=== PATIENT | male | born 1950 | race Caucasian/White ===

== ENCOUNTER 2017-03-12 08:33 | Day surgery (SDC) | payer BC ==
--- NOTE | 2017-03-06 16:34 | CONS ---
CC: Dr. 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 Max Richards. At the present time, he is asymptomatic. He has a history of diabetes mellitus type 2 and hypertension. He has a history of hyperlipidemia. He has a history of gout in the past. CURRENT MEDICATIONS: 1. Metformin 1000 mg b.i.d. 2. Actos 15 mg b.i.d. 3. Lisinopril/Hydrochlorothiazide 20/25 one daily. 4. Atenolol 50 mg daily. 5. Terazosin 10 mg b.i.d. 6. Allopurinol 100 mg daily. 7. Victoza 1.2 gm daily. ALLERGIES: No known medical allergies. FAMILY HISTORY: Unremarkable. SOCIAL HISTORY: He is an human resources project coordinator. He is . He does not use tobacco. He limits himself to two drinks per day. REVIEW OF SYSTEMS: No hearing difficulties. No heat or cold intolerance. No chest pain, no shortness of breath. No nausea, no vomiting. He has a history of benign prostatic hypertrophy. No problems with constipation or diarrhea. No arthropathies. No skin rashes. 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 No neuropathy or neurologic deficits. PHYSICAL EXAMINATION: General: He is an obese, white gentleman in no distress. Vital Signs: He weighs 308, he is 6 feet in height. HEENT: He is normocephalic without evidence of trauma. He is anicteric. His extraocular muscles are intact. His pupils are reactive. The throat is clear. There are no carotid bruits. There is no jugular venous distention. His chest is clear. Heart: Revealed a regular rhythm without murmurs. Abdomen: Obese. There is no organomegaly. Bowel sounds are positive. Bones, joints and extremities: There is no cyanosis, clubbing or edema. Peripheral pulses are well maintained. Neurologic: Unremarkable. LABORATORY DATA: A review of his laboratory studies reveals a white count of 7.2, hemoglobin of 14.7, platelet count of 195; sodium 139, potassium 4.5, total CO2 32, chloride 100, creatinine 1.19 and this is basically around his baseline, BUN of 19, glucose of 150, hemoglobin A1c 8.1. IMPRESSION: 1. Cataract. 2. Diabetes mellitus type 2. 3. Hypertension. 4. Hyperlipidemia. 5. Benign prostatic hypertrophy. He is at slightly increased risk for surgery because of his diabetes and hypertension; however, both are adequately managed at the present time. I see no significant cardiovascular risk. I see no significant bleeding problems. I see no significant extra infectious disease risks. As a result, I believe it is reasonable to proceed along with the planned surgery. [id number]/[facility] #: [id number] TOM
[~2017-03-12 08:33] MED LIST: Acetaminophen TAB* 325 MG PO PRN; Buffered Lidocaine 0.9% SYRIN* 5 ML/SYR SYRINGE INTRADERM ONE
[2017-03-12] MEDS ORDERED: Atenolol TAB* 50 MG ONE (09:00)
[2017-03-12] MEDS ORDERED: Midazolam* 1 MG/ML 2 ML VIAL (2 MG) ONE (09:36)
[2017-03-12 10:05] VITALS: BP 127/72
--- NOTE | 2017-03-12 12:05 | OP ---
DATE OF OPERATION/DATE OF DICTATION: 03/12/2017. DATE OF : 1950. SURGEON: Dr. Max Richards. MERCHANDISE DIRECTOR: None. ANESTHESIA: Topical with intravenous sedation. PRE-OP DIAGNOSIS: Cataract, right eye. POST-OP DIAGNOSIS: Cataract, right eye. OPERATIVE PROCEDURE: Phacoemulsification and cataract extraction with posterior chamber intraocular lens implant, right eye. COMPLICATIONS: None. BLOOD LOSS: None. OPERATIVE FINDINGS: The patient was brought to the operating room and received a small amount of int ravenous sedation. A drop of Tetracaine was placed in his right eye. He was prepped and draped in t he usual sterile fashion for ophthalmic surgery and attention was directed to the right eye where a s peculum was placed. A paracentesis was created at the 11 o'clock position and 0.1 cc of 1 percent pr eservative-free Lidocaine was injected into the anterior chamber followed by DisCoVisc. The eye was digitally stabilized while a 2.75 mm keratome was used to create a triplanar clear corneal incision a t the 9 o'clock position. A continuous curvilinear capsulorrhexis was created with a cystotome and U trata forceps. BSS on a cannula was used to hydrodissect the lens from the capsule. Phacoemulsificat ion was performed in a [id number] technique to create four fragments which were removed. Res idual cortical material was removed with irrigation and aspiration. DisCoVisc was used to inflate th e capsular bag and an AUOOTO 21.0 diopter lens was folded and inserted into the capsular bag. DisCoV isc was removed using irrigation and aspiration. BSS on a cannula was used to hydrate the corneal st jeison and seal the wound. At the end of the case the pupil was round and the lens was centered. The eye was of normal pressure and the wound was water tight. The speculum was removed and topical Maxit rol ointment was placed on the surface of the eye. The eye was closed, patched and shielded and the patient was sent to the recovery room in stable condition with post operative instructions and follow -up appointment given. [id number]/[facility] #: [id number]
[2017-03-12] MEDS ORDERED: Tropicamide 1% OPTH.SOL* BTL ONE (15:02)
[2017-03-12] MEDS ORDERED: Cyclopentolate 1% OPTH.SOL* 2 ML BTL ONE (15:02)
[2017-03-12] MEDS ORDERED: Tetracaine 0.5% OPTH.SOL 4 ML* 1 DROP BTL ONE (15:02)
[2017-03-12] MEDS ORDERED: Neomycin/Polymy/Dex OPHTH.OIN* 3.5 GM ONE (15:02)
[2017-03-12] MEDS ORDERED: Buffered Lidocaine 0.9% SYRIN* 5 ML/SYR SYRINGE ONE (15:02)
[2017-03-12] MEDS ORDERED: Phenylephrine 2.5% OPTH.SOL* 2 ML BTL ONE (15:02)
[2017-03-12] MEDS ORDERED: Lidocaine 1% MPF* 2 ML VIAL ONE (15:02)
[2017-03-12] MEDS ORDERED: Ketorolac 0.5% OPHTH (NF) 0.5 % 5 ML BTL ONE (15:02)
== END 2017-03-12 10:16 | disposition home or self-care (01) ==
LOC: OREAST 08:33
PROVIDERS: ATTEND Ophthalmology
DX: E11.36 Type 2 diabetes mellitus with diabetic cataract (principal); H25.11 Age-related nuclear cataract, right eye; I10 Essential (primary) hypertension; M10.9 Gout, unspecified; Z79.84 Long term (current) use of oral hypoglycemic drugs; N40.0 Benign prostatic hyperplasia without lower urinary tract symptoms; E78.5 Hyperlipidemia, unspecified; E66.9 Obesity, unspecified
CPT/HCPCS: A9270-GY; J2250; V2632

== ENCOUNTER 2017-05-25 13:44 | Emergency (ER) | payer BC, MEDICARE ==
[2017-05-25] MEDS ORDERED: NS 0.9% 1000 ML* 2,000 ML IV ONE (15:29)
[2017-05-25 15:30] LABS: Hematocrit 43 % (42-52); Hemoglobin 14.8 g/dl (14.0-18.0); Mean Corpuscular HGB Conc 34 g/dl (31-36); Mean Corpuscular Hemoglobin 31 pg (27-31); Mean Corpuscular Volume 91 fL (80-94); Mean Platelet Volume 10 um3 (7.4-10.4); Platelet Count 177 10^3/ul (150-450); Red Blood Count 4.74 10^6/ul (4.0-5.4); Red Cell Distribution Width 15 % (10.5-15); White Blood Count 18.5 10^3/ul (3.5-10.8)
[2017-05-25 15:43] LABS: INR 0.96 (0.77-1.02)
[2017-05-25 15:46] LABS: EGFR Non-African American 55.7 (>60)
[2017-05-25 16:18] LABS: Monocytes % 5 % (0-13)
[2017-05-25 16:19] LABS: ABS Neutrophils 16.4 10^3/ul (1.5-7.7)
[2017-05-25 16:41] LABS: Urine Appearance Turbid; Urine Blood 3+ (Negative); Urine Color Amber; Urine Ketones Trace (Negative); Urine Protein 2+(100 mg/dL) (Negative); Urine Specific Gravity 1.018 (1.010-1.030); Urine Urobilinogen Negative (Negative)
[2017-05-25] MEDS ORDERED: cefTRIAXone(*) 1 GM in NS 0.9% 50 ML* 50 ML IVPB ONE (16:52)
[2017-05-25] MEDS ORDERED: Amoxicillin/Clavulanate TAB* 875 MG PO ONE ×2 (17:30)
--- NOTE | 2017-05-25 17:30 | ED ---
Erwin Cuevas Jennifer, scribed for Talha Yanes MD on 05/25/17 at 1456 . GI/ HPI - HPI Summary HPI Summary: The patient is a 66 year old male who presents to the ED with prostate problems and UTI symptoms that began this morning. He describes that he had to get up every hour at night to use the restroom and that the symptoms feel similar to a UTI he had 3-4 years ago. The patient additionally complains of fever, exhaustion, and discomfort upon urination. He denies cough, congestion, and chest pain. - History of Current Complaint Chief Complaint: EDUrogenitalProblems Time Seen by Provider: 05/25/17 14:43 Stated Complaint: FEVER/URINARY ISSUES Hx Obtained From: Patient Onset/Duration: Started Hours Ago - Early this morning, Still Present Timing: Constant Severity: Mild Current Severity: None Pain Intensity: 0 Associated Signs and Symptoms: Positive: Other: - Increased frequency of urination, discomfort while urinating, fever, exhaustion. NEGATIVE: cough, congestion, chest pain Aggravating Factor(s): Nothing Alleviating Factor(s): Nothing - Allergy/Home Medications Allergies/Adverse Reactions: Allergies Allergy/AdvReac Type Severity Reaction Status Date / Time No Known Allergies Allergy Verified 03/05/17 14:02 PMH/Surg Hx/FS Hx/Imm Hx Endocrine/Hematology History: Reports: Hx Diabetes - type 2 Cardiovascular History: Reports: Hx Hypertension, Other Cardiovascular Problems/ Disorders - hx of diabetes Denies: Hx Pacemaker/ICD Respiratory History: Reports: Hx Sleep Apnea - no machine History: Denies: Hx Renal Disease Musculoskeletal History: Denies: Hx Rheumatoid Arthritis, Hx Osteoporosis Sensory History: Reports: Hx Cataracts - both, Hx Contacts or Glasses - glasses Denies: Hx Hearing Aid Opthamlomology History: Reports: Hx Cataracts - both, Hx Contacts or Glasses - glasses Psychiatric History: Denies: Hx Panic Disorder - Cancer History Hx Chemotherapy: No - Surgical History Surgery Procedure, Year, and Place: APPENDECTOMY. PLANTAR - WART? Rt FOOT. left cystacele Hx Anesthesia Reactions: No - Immunization History Date of Influenza Vaccine: 01/2017 Immunizations Up to Date: Yes Infectious Disease History: No Infectious Disease History: Denies: Traveled Outside the [place] in Last 30 Days - Family History Known Family History: Negative: Diabetes - Social History Alcohol Use: Weekly Substance Use Type: Reports: None Smoking Status (MU): Former Smoker Amount Used/How Often: smoked for approx 15-20 years 1ppd Review of Systems Positive: Fever, Other - Exhaustion Negative: Chest Pain Negative: Cough, Other - Congestion Positive: burning, urgency All Other Systems Reviewed And Are Negative: Yes Physical Exam - Summary Physical Exam Summary: General: mildly ill-appearing, no pain distress Skin: warm, color reflects adequate perfusion, dry Head: normal Eyes: EOMI, JUAN RAMON ENT: normal Neck: supple, nontender Respiratory: CTA, breath sounds present Cardiovascular: RRR Abdomen: soft, nontender Bowel: present Musculoskeletal: normal, strength/ROM intact Neurological: normal, sensory/motor intact, A&O x3 Psychological: affect/mood appropriate Triage Information Reviewed: Yes Vital Signs On Initial Exam: Initial Vitals Temp Pulse Resp BP Pulse Ox 99.7 F 128 20 122/67 94 05/25/17 13:47 05/25/17 13:47 05/25/17 13:47 05/25/17 13:47 05/25/17 13:47 Vital Signs Reviewed: Yes Diagnostics - Vital Signs Vital Signs Temp Pulse Resp BP Pulse Ox 05/25/17 13:47 99.7 F 128 20 122/67 94 - Laboratory Lab Results: Lab Results 05/25/17 05/25/17 05/25/17 Range/Units 15:20 15:20 15:20 WBC 18.5 H (3.5-10.8) 10^3/ul RBC 4.74 (4.0-5.4) 10^6/ul Hgb 14.8 (14.0-18.0) g/dl Hct 43 (42-52) % MCV 91 (80-94) fL MCH 31 (27-31) pg MCHC 34 (31-36) g/dl RDW 15 (10.5-15) % Plt Count 177 (150-450) 10^3/ul MPV 10 (7.4-10.4) um3 Neut % (Auto) Not Reportable Lymph % (Auto) Not Reportable [place] % (Auto) Not Reportable Eos % (Auto) Not Reportable Baso % (Auto) Not Reportable Absolute Neuts (auto) 16.4 H (1.5-7.7) 10^3/ul Absolute Lymphs (auto) Not Reportable Absolute Monos (auto) Not Reportable Absolute Eos (auto) Not Reportable Absolute Basos (auto) Not Reportable Absolute Nucleated RBC Not Reportable Immature Gran % 13 H (0-9) % Neutrophils % 77 (38-83) % Band Neutrophils % 13 H (0-8) % Lymphocytes % 1 L (25-47) % Reactive Lymphs % 4 (0-6) % Monocytes % 5 (0-13) % Eosinophils % 0 (0-6) % Basophils % 0 (0-2) % Nucleated RBC % Not Reportable Abs Neuts (Manual) 14.2 H (1.5-7.7) 10^3/ul Abs Monocytes (Manual) 0.9 H (0-0.8) 10^3/ul Absolute Eos (Manual) 0 (0-0.6) 10^3/ul Abs Basophils (Manual) 0 (0-0.2) 10^3/ul Normal RBC Morphology Normal (Normal) INR (Anticoag Therapy) (0.77-1.02) Sodium 133 (133-145) mmol/L Potassium 3.7 (3.5-5.0) mmol/L Chloride 98 L (101-111) mmol/L Carbon Dioxide 27 (22-32) mmol/L Anion Gap 8 (2-11) mmol/L BUN 23 (6-24) mg/dL Creatinine 1.29 H (0.67-1.17) mg/dL Est GFR ( Amer) 71.7 (>60) Est GFR (Non-Af Amer) 55.7 (>60) BUN/Creatinine Ratio 17.8 (8-20) Glucose 225 H (70-100) mg/dL Lactic Acid (0.5-2.0) mmol/L Calcium 9.3 (8.6-10.3) mg/dL Total Bilirubin 0.70 (0.2-1.0) mg/dL AST 21 (13-39) U/L ALT 25 (7-52) U/L Alkaline Phosphatase 68 (34-104) U/L C-Reactive Protein 23.44 H (< 5.00) mg/L B-Natriuretic Peptide 109 H ( - 100) pg/mL Total Protein 6.8 (6.4-8.9) g/dL Albumin 3.9 (3.2-5.2) g/dL Globulin 2.9 (2-4) g/dL Albumin/Globulin Ratio 1.3 (1-3) Lipase 14 (11.0-82.0) U/L Urine Color Urine Appearance Urine pH (5-9) Ur Specific [place] (1.010-1.030) Urine Protein (Negative) Urine Ketones (Negative) Urine Blood (Negative) Urine Nitrate (Negative) Urine Bilirubin (Negative) Urine Urobilinogen (Negative) Ur Leukocyte Esterase (Negative) Urine WBC (Auto) (Absent) Urine RBC (Auto) (Absent) Ur Squamous Epith Cells (Absent) Urine Bacteria (Absent) Urine Glucose (Negative) 05/25/17 05/25/17 05/25/17 Range/Units 15:20 15:20 16:17 WBC (3.5-10.8) 10^3/ul RBC (4.0-5.4) 10^6/ul Hgb (14.0-18.0) g/dl Hct (42-52) % MCV (80-94) fL MCH (27-31) pg MCHC (31-36) g/dl RDW (10.5-15) % Plt Count (150-450) 10^3/ul MPV (7.4-10.4) um3 Neut % (Auto) Lymph % (Auto) [place] % (Auto) Eos % (Auto) Baso % (Auto) Absolute Neuts (auto) (1.5-7.7) 10^3/ul Absolute Lymphs (auto) Absolute Monos (auto) Absolute Eos (auto) Absolute Basos (auto) Absolute Nucleated RBC Immature Gran % (0-9) % Neutrophils % (38-83) % Band Neutrophils % (0-8) % Lymphocytes % (25-47) % Reactive Lymphs % (0-6) % Monocytes % (0-13) % Eosinophils % (0-6) % Basophils % (0-2) % Nucleated RBC % Abs Neuts (Manual) (1.5-7.7) 10^3/ul Abs Monocytes (Manual) (0-0.8) 10^3/ul Absolute Eos (Manual) (0-0.6) 10^3/ul Abs Basophils (Manual) (0-0.2) 10^3/ul Normal RBC Morphology (Normal) INR (Anticoag Therapy) 0.96 (0.77-1.02) Sodium (133-145) mmol/L Potassium (3.5-5.0) mmol/L Chloride (101-111) mmol/L Carbon Dioxide (22-32) mmol/L Anion Gap (2-11) mmol/L BUN (6-24) mg/dL Creatinine (0.67-1.17) mg/dL Est GFR ( Amer) (>60) Est GFR (Non-Af Amer) (>60) BUN/Creatinine Ratio (8-20) Glucose (70-100) mg/dL Lactic Acid 1.5 (0.5-2.0) mmol/L Calcium (8.6-10.3) mg/dL Total Bilirubin (0.2-1.0) mg/dL AST (13-39) U/L ALT (7-52) U/L Alkaline Phosphatase (34-104) U/L C-Reactive Protein (< 5.00) mg/L B-Natriuretic Peptide ( - 100) pg/mL Total Protein (6.4-8.9) g/dL Albumin (3.2-5.2) g/dL Globulin (2-4) g/dL Albumin/Globulin Ratio (1-3) Lipase (11.0-82.0) U/L Urine Color Tea Urine Appearance Turbid Urine pH 5.0 (5-9) Ur Specific [place] 1.018 (1.010-1.030) Urine Protein 2+(100 mg/dl) H (Negative) Urine Ketones Trace H (Negative) Urine Blood 3+ H (Negative) Urine Nitrate Negative (Negative) Urine Bilirubin Negative (Negative) Urine Urobilinogen Negative (Negative) Ur Leukocyte Esterase 3+ H (Negative) Urine WBC (Auto) 3+(>20/hpf) H (Absent) Urine RBC (Auto) 3+(>10/hpf) H (Absent) Ur Squamous Epith Cells Present H (Absent) Urine Bacteria 1+ H (Absent) Urine Glucose Negative (Negative) Result Diagrams: 05/25/17 15:20 05/25/17 15:20 Lab Statement: Any lab studies that have been ordered have been reviewed, and results considered in the medical decision making process. - EKG 15:07 Cardiac Rate: Tachycardia EKG Rhythm: Sinus Tachycardia - [address] Segment: Normal Ectopy: None GIGU Course/Dx - Course Course Of Treatment: BP noted and advised to follow up with PCP. Medications reviewed. DISCUSSED ADMISSION WITH PATIENT AND HIS . THE PATIENT DECLINES ADMISSION. AUGMENTIN CHOOSEN BASED ON 03/06 URINE CULTURE. F/U PMD AND UROLOGY ; RETURN IF WORSE. - Diagnoses Provider Diagnoses: UTI (urinary tract infection) Discharge - Discharge Plan Condition: Stable Disposition: HOME Prescriptions: Amoxicillin/Clavulanate TAB* [Augmentin TAB 875*] 875 mg PO BID #20 tab Patient Education Materials: Urinary Tract Infection in Men (ED) Referrals: [facility] [Provider Group] Kings De La Torre MD [Primary Care Provider] - Jose Chino MD [Medical Doctor] - Juanito Betancourt MD [Medical Doctor] - Additional Instructions: FOLLOW UP WITH YOUR PRIMARY CARE DOCTOR AND UROLOGY. RETURN TO THE EMERGENCY DEPARTMENT FOR ANY WORSENING OF YOUR CONDITION; FEVER, YOU FEEL ILL OR QUESTIONS OR CONCERNS. The documentation as recorded by the Erwin greene Jennifer accurately reflects the service I personally performed and the decisions made by me, Talha Yanes MD.
[2017-05-25 18:10] VITALS: BP 131/73
--- NOTE | 2017-05-27 09:52 | PN ---
Progress Note - Progress Note Date of Service: 05/27/17 Note: Patient's urine culture grew Pseudomonas. Discussed the patient will placed on Cipro twice a day 500 mg twice a day for 10 days.
--- NOTE | 2017-05-28 09:05 | PN ---
Progress Note - Progress Note Date of Service: 05/25/17 Note: patient placed on cipro for treatment of UTI. final culture results show bacteria is susceptible to cipro. no further action required.
== END 2017-05-25 18:31 | disposition home or self-care (01) ==
LOC: ED 13:44
DX: N39.0 Urinary tract infection, site not specified (principal); B96.5 Pseudomonas (aeruginosa) (mallei) (pseudomallei) as the cause of diseases classified elsewhere; Z87.891 Personal history of nicotine dependence
CPT/HCPCS: 36415; 80053; 81003; 81015; 83605; 83690; 83880; 85025; 85610; 86140; 87040; 87077; 87086; 87186; 93005; 96361; 96365; 99282; A9270-GY; J0696

== ENCOUNTER 2018-07-21 16:01 | Emergency (ER) | payer BC, MEDICARE ==
[2018-07-21 16:11] VITALS: BP 135/71
--- NOTE | 2018-07-21 16:32 | UC ---
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 He states that his stool kicked out from under him and he landed on his left posterior pelvis. He is able to continue the day and was able to get up and move around without incident. He received a Toradol injection in the office then. He didn't have much pain through the weekend but then in return to the office today with standing and rotation he began to again experience discomfort. He denies any issues with bowel or bladder, no saddle numbness no weakness or numbness in his legs. He minimizes his use of NSAIDs given his metformin, lisinopril and a baseline creatinine of 1.1. He states his high creatinine was 1.4. - History of Current Complaint Chief Complaint: UCBackPain Stated Complaint: FALL INJURY Time Seen by Provider: 07/21/18 16:13 Hx Obtained From: Patient Pain Intensity: 3 - Allergies/Home Medications Allergies/Adverse Reactions: Allergies Allergy/AdvReac Type Severity Reaction Status Date / Time No Known Allergies Allergy Verified 07/21/18 16:11 Home Medications: Home Medications Dutasteride 0.5 mg PO DAILY 07/21/18 [History Confirmed 07/21/18] Rosuvastatin Calcium 20 mg PO DAILY 07/21/18 [History Confirmed 07/21/18] PMH/Surg Hx/FS Hx/Imm Hx Endocrine History: Diabetes Cardiovascular History: Hypertension - Surgical History Surgical History: Yes Surgery Procedure, Year, and Place: APPENDECTOMY. PLANTAR - WART? Rt FOOT. left cystacele - Family History Known Family History: Negative: Diabetes - Social History Occupation: Employed Full-time Alcohol Use: Occasionally Substance Use Type: None Smoking Status (MU): Former Smoker Amount Used/How Often: smoked for approx 15-20 years 1ppd When Did the Patient Quit Smoking/Using Tobacco: [id number] progrssively Review of Systems All Other Systems Reviewed And Are Negative: Yes Constitutional: Positive: Negative Skin: Negative: Rash, Bruising Cardiovascular: Positive: Negative Gastrointestinal: Positive: Negative Genitourinary: Negative: Urgency, Abnormal Bleeding Motor: Positive: Other - Pain with standing and rotation. Negative: Decreased ROM Musculoskeletal: Negative: Arthralgia, Edema, Myalgia Neurological: Negative: Weakness, Numbness Physical Exam Triage Information Reviewed: Yes Appearance: Well-Appearing, No Pain Distress Vital Signs: Initial Vital Signs Temp 97.5 F 07/21/18 16:03 Pulse 85 07/21/18 16:03 Resp 16 07/21/18 16:03 BP 135/71 07/21/18 16:03 Pulse Ox 95 07/21/18 16:03 Respiratory: Positive: Lungs clear Cardiovascular: Positive: RRR Musculoskeletal: Positive: Other: - Minimal pain with standing in the left posterior pelvis without bruising, swelling. No significant spasm or tenderness with palpation. No midline lumbar pain. Neurological Exam: Other - Normal gait. Negative straight leg raises. No crepitance in the hip. Neurological: Positive: Alert Skin Exam: Normal Diagnostics - Radiology Pelvis Radiology Interpretation Completed By: Radiologist Summary of Radiographic Findings: IMPRESSION: #. No radiographic evidence for pelvic fracture. Minor Trauma Course/Dx - Course Course Of Treatment: Nurses notes reviewed. Ice, massage. NSAID as needed. He understands need to limit use of NSAID with glucophage and ACEI. Xrays neg. - Differential Dx/Diagnosis Differential Diagnosis/HQI/PQRI: Contusion(s), Fracture Provider Diagnosis: Pelvic contusion Discharge - Sign-Out/Discharge Documenting (check all that apply): Patient Departure All imaging exams completed and their final reports reviewed: Yes - Discharge Plan Condition: Improved Disposition: HOME Patient Education Materials: Contusion in Adults (ED) Referrals: [facility] [place] [facility] [Outside] Garima Hendrickson MD [Primary Care Provider] - Additional Instructions: ice, NSAID as needed. Limit use. Return with more intense pain, worse or other concerns. - Billing Disposition and Condition Condition: IMPROVED Disposition: Home - Attestation Statements Document Initiated by Scribe: No
== END 2018-07-21 17:06 | disposition home or self-care (01) ==
LOC: UCEAST 16:01
DX: S30.0XXA Contusion of lower back and pelvis, initial encounter (principal); W07.XXXA Fall from chair, initial encounter; Y93.F9 Activity, other caregiving; Y92.531 Health care provider office as the place of occurrence of the external cause; Y99.0 Civilian activity done for income or pay; I10 Essential (primary) hypertension; E11.9 Type 2 diabetes mellitus without complications; Z79.84 Long term (current) use of oral hypoglycemic drugs; Z79.899 Other long term (current) drug therapy; Z87.891 Personal history of nicotine dependence
CPT/HCPCS: 72170; 99212; G0463

== ENCOUNTER 2018-12-29 16:17 | Inpatient (IN) | payer BC, MEDICARE ==
[2018-12-29] MEDS ORDERED: NS 0.9% 1000 ML** 1,000 ML IV.FLUID IV ONE (16:24)
--- NOTE | 2018-12-29 16:33 | ED ---
HPI Diabetic - HPI Summary HPI Summary: This patient is a 68 year old male with a Hx of diabetes presenting to [facility] with a chief complaint of weakness. He states over the past several days he has had diarrhea. He states he had elevated glucose on Saturday, improved with insulin, then had improved Glucose level this AM. He states he normally does not need to take insulin but had some he could take and it helped his symptoms. He states today he is now weak, photophobia, cold sweats, hypotensive, has polyuria polydipsia, and has bilateral neck pain. He describes the neck pain as a tension pain. Pt denies any fever, erythema of eyes, sore throat, CP, SOB, cough, abdominal pain, N/V, dysuria, hematuria, myalgia, edema, rash, or dizziness. The patient refuses a garcia catheter at this point. BP in room is 86/54, HR is 82 BPM. Allopurinol TAB* [Zyloprim 100 MG TAB*] 100 mg PO QAM 01/12/14 [History Confirmed 07/21/18] Atenolol TAB* [Tenormin TAB* 50 MG] 50 mg PO QAM 01/12/14 [History Confirmed 05/10] Lisinopril/HCTZ 20/25(NF) 1 tab PO QAM 01/12/14 [History Confirmed 07/21/18] Pioglitazone TAB* [Actos TAB*] 15 mg PO BID 01/12/14 [History Confirmed 07/21/18 ] Terazosin CAP* [Hytrin CAP 5 MG*] 10 mg PO BID 01/12/14 [History Confirmed 07/21] metFORMIN* [Glucophage 1000 MG TAB *] 1,000 mg PO BID 01/12/14 [History Confirmed 07/21/18] Aspirin EC TAB* [Ecotrin EC Low Dose 81 MG*] 81 mg PO QAM 03/05/17 [History Confirmed 07/21/18] Liraglutide (NF) [Victoza (NF)] 1.2 mg SUBCUT QAM 03/05/17 [History Confirmed ] Dutasteride 0.5 mg PO DAILY 07/21/18 [History Confirmed 07/21/18] Rosuvastatin Calcium 20 mg PO DAILY 07/21/18 [History Confirmed 07/21/18] - History Of Current Complaint Chief Complaint: EDWeakness Time Seen by Provider: 12/29/18 16:24 Hx Obtained From: Patient Onset/Duration: Sudden Onset, Lasting Days Associated Signs & Symptoms: Diarrhea, Polydipsia, Polyuria - Allergies/Home Medications Allergies/Adverse Reactions: Allergies Allergy/AdvReac Type Severity Reaction Status Date / Time No Known Allergies Allergy Verified 07/21/18 16:11 Home Medications: Home Medications Allopurinol TAB* [Zyloprim 300 MG TAB*] 300 mg PO DAILY 12/29/18 [History Confirmed 12/29/18] Dutasteride (NF) [Avodart (NF)] 0.5 mg PO DAILY 12/29/18 [History Confirmed 01/08] Insulin Glargine,Hum.rec.anlog [Basaglar Kwikpen] 20 unit SUBCUT BID 12/29/18 [ History Confirmed 12/29/18] Insulin Regular 500 Unit/ml [Humulin R U-500 (Concentrated)] 0 unit SUBCUT QID MDD 145 units 12/29/18 [History Confirmed 12/29/18] Lisinopril/HCTZ 20/25(NF) [Zestoretic 20/25(NF)] 1 tab PO DAILY 12/29/18 [ History Confirmed 12/29/18] Rosuvastatin (NF) [Crestor] 20 mg PO DAILY 12/29/18 [History Confirmed 12/29/18] PMH/Surg Hx/FS Hx/Imm Hx Endocrine/Hematology History: Reports: Hx Diabetes - type 2 Cardiovascular History: Reports: Hx Hypertension, Other Cardiovascular Problems/ Disorders - hx of diabetes Denies: Hx Pacemaker/ICD Respiratory History: Reports: Hx Sleep Apnea - no machine History: Denies: Hx Renal Disease Musculoskeletal History: Denies: Hx Rheumatoid Arthritis, Hx Osteoporosis Sensory History: Reports: Hx Cataracts - both, Hx Contacts or Glasses - glasses Denies: Hx Hearing Aid Opthamlomology History: Reports: Hx Cataracts - both, Hx Contacts or Glasses - glasses Psychiatric History: Denies: Hx Panic Disorder - Cancer History Hx Chemotherapy: No - Surgical History Surgery Procedure, Year, and Place: APPENDECTOMY. PLANTAR - WART? Rt FOOT. left cystacele Hx Anesthesia Reactions: No - Immunization History Date of Influenza Vaccine: 01/2017 Infectious Disease History: No Infectious Disease History: Reports: Hx Tuberculosis Denies: Traveled Outside the [place] in Last 30 Days - Family History Known Family History: Negative: Diabetes - Social History Alcohol Use: Occasionally Substance Use Type: Reports: None Hx Tobacco Use: Yes Smoking Status (MU): Former Smoker Amount Used/How Often: smoked for approx 15-20 years 1ppd Review of Systems Positive: Chills - Cold sweats. Negative: Fever Positive: Photophobia. Negative: Erythema Negative: Sore Throat Positive: Other - Hypotensive. Negative: Chest Pain Negative: Shortness Of Breath, Cough Positive: Diarrhea. Negative: Abdominal Pain, Vomiting, Nausea Positive: frequency - Polyuria Polydipsia. Negative: dysuria, hematuria Positive: Other - Neck pain. Negative: Myalgia, Edema Negative: Rash Neurological: Other - Neg: Dizziness Positive: Weakness All Other Systems Reviewed And Are Negative: No Physical Exam - Summary Physical Exam Summary: Constitutional: Well-developed, Well-nourished, Alert. (-) Distressed. Obese. Skin: Warm, Dry HENT: Normocephalic; Atraumatic Eyes: Conjunctiva normal Neck: Musculoskeletal ROM normal neck. (-) JVD, (-) Stridor, (-) Tracheal deviation Cardio: Rhythm regular, rate normal, Heart sounds normal; Intact distal pulses; The pedal pulses are 2+ and symmetric. Radial pulses are 2+ and symmetric. (-) Murmur Pulmonary/Chest wall: Effort normal. (-) Respiratory distress, (-) Wheezes, (-) Rales Abd: Soft, (-) tenderness, (-) Distension, (-) Guarding, (-) Rebound Musculoskeletal: (-) Edema Lymph: (-) Cervical adenopathy Neuro: Alert, Oriented x3 Psych: Mood and affect Normal Triage Information Reviewed: Yes Vital Signs On Initial Exam: Initial Vitals Temp Pulse Resp BP Pulse Ox 96.7 F 87 20 74/51 97 12/29/18 16:18 12/29/18 16:18 12/29/18 16:18 12/29/18 16:18 12/29/18 16:18 Vital Signs Reviewed: Yes Diagnostics - Vital Signs Vital Signs Temp Pulse Resp BP Pulse Ox 12/29/18 16:18 96.7 F 87 20 74/51 97 - Laboratory Result Diagrams: 12/29/18 16:35 12/29/18 16:54 Lab Statement: Any lab studies that have been ordered have been reviewed, and results considered in the medical decision making process. - Radiology CXR Radiology Interpretation Completed By: Radiologist Summary of Radiographic Findings: No active cardiopulmonary disease. ED Provider has reviewed this report. - EKG 1637 Cardiac Rate: Bradycardia - 57 BPM EKG Rhythm: Sinus Bradycardia Summary of EKG Findings: No STEMI. Diabetic Course/Dx - Course Course Of Treatment: This patient is a 68 year old male with a Hx of diabetes presenting to [facility] with a chief complaint of weakness. The patients lactic acid level was 3.[address] Thompson, hospitalist, accepted the patient for admission. This plan was discussed with the patient and he was agreeable with this plan. - Diagnoses Provider Diagnoses: Sepsis, Acute renal failure, Uncontrolled diabetes mellitus, Lactic acidosis Discharge ED - Sign-Out/Discharge Documenting (check all that apply): Patient Departure - Admission Patient Received Moderate/Deep Sedation with Procedure: No - Discharge Plan Condition: Stable Disposition: ADMITTED TO [facility] Referrals: Garima Hendrickson MD [Medical Doctor] - - Attestation Statements Document Initiated by Scribe: Yes Documenting Scribe: Marcos Laguerre Provider For Whom Scribe is Documenting (Include Credential): Yazan Arango MD Scribe Attestation: Marcos Cuevas, scribed for Yazan Arango MD on 12/29/18 at 1842. Status of Scribe Document: Ready
[2018-12-29 16:43] LABS: ABS Basophils 0.1 10^3/ul (0-0.2); ABS Eosinophils 0.1 10^3/ul (0-0.6); ABS Lymphocytes 1.5 10^3/ul (1.0-4.8); ABS Monocytes 0.9 10^3/ul (0-0.8); ABS Neutrophils 8.6 10^3/ul (1.5-7.7); Eosinophil % 1.2 %; Hematocrit 43 % (42-52); Hemoglobin 14.9 g/dL (14.0-18.0); Lymphocyte % 13.2 %; Mean Corpuscular HGB Conc 35 g/dL (31-36); Mean Corpuscular Hemoglobin 31 pg (27-31); Mean Corpuscular Volume 90 fL (80-94); Mean Platelet Volume 9.9 fL (7.4-10.4); Nucleated Red Blood Cells % 0.2; Platelet Count 253 10^3/uL (150-450); Red Blood Count 4.79 10^6 /uL (4.18-5.48); Red Cell Distribution Width 15 % (10-15); White Blood Count 11.2 10^3/uL (3.5-10.8)
[2018-12-29] MEDS ORDERED: Vancomycin(*) 1,000 MG in NS 0.9% 250 ML* 250 ML IVPB ONE ×2 (16:45→21:01)
[2018-12-29] MEDS ORDERED: cefTRIAXone(*) 2 GM in NS 0.9% 100 ML* 100 ML IVPB ONE (16:45)
[2018-12-29] MEDS ORDERED: Acyclovir IV(*) 500 MG/10 ML 100 ML VIAL (500 MG) IVPB ONE (16:45)
[2018-12-29 16:55] LABS: Activated Partial Thrombo Time 33.3 seconds (26.0-38.0); INR 0.92 (0.82-1.09)
[2018-12-29 17:02] LABS: Troponin I 0.01 ng/mL (<0.04)
[2018-12-29 17:07] LABS: ALT 36 U/L (7-52); Albumin 4.2 g/dL (3.2-5.2); Albumin/Globulin Ratio 1.5 (1-3); Alkaline Phosphatase 96 U/L (34-104); BUN/Creatinine Ratio 14.1 (8-20); Blood Urea Nitrogen 34 mg/dL (6-24); CO2 Carbon Dioxide 29 mmol/L (22-32); Calcium 10.5 mg/dL (8.6-10.3); Chloride 94 mmol/L (101-111); EGFR African American 32.6 (>60); EGFR Non-African American 26.9 (>60); Globulin 2.8 g/dL (2-4); Glucose 131 mg/dL (70-100); Sodium 135 mmol/L (135-145)
[2018-12-29 17:58] LABS: Anion Gap 12 mmol/L (2-11)
[2018-12-29 17:59] LABS: Potassium Redraw 3.9 mmol/L (3.5-5.0)
[2018-12-29] MEDS ORDERED: Acyclovir IV(*) 780 MG in NS 0.9% 250 ML* 250 ML IVPB ONE (18:00)
[2018-12-29] MEDS ORDERED: Lidocaine 1% MDV 20 ML INJ ONE (19:21)
[2018-12-29] MEDS ORDERED: Lidocaine 1% INJ* 10 MG/ML 30 ML SDV INJ ONE (20:00)
[2018-12-29 20:08] LABS: Urine Appearance Cloudy; Urine Bacteria 1+ (Absent); Urine Bilirubin Negative (Negative); Urine Blood 1+ (Negative); Urine Color Yellow; Urine Glucose 3+(>=500 mg/dL) (Negative); Urine Ketones Negative (Negative); Urine Nitrite Negative (Negative); Urine Protein 1+(30 mg/dL) (Negative); Urine Red Blood Cell 2+(6-10/hpf) (Absent); Urine Squamous Epithelial Cell Present (Absent); Urine Transitional Epithelial Present (Absent); Urine Urobilinogen Negative (Negative); Urine White Blood Cell 3+(>20/hpf) (Absent)
[2018-12-29 20:29] LABS: Body Fluid Source Cerebral Spinal
[2018-12-29 20:43] LABS: CSF Glucose 110 mg/dL (40-70)
--- NOTE | 2018-12-29 21:07 | PN ---
Sepsis Event Evaluation Date of Evaluation: 12/29/18 Time of Evaluation: 21:07 Current Stage of Sepsis: Severe Sepsis Vital Signs - Last 12 Hours: Vital Signs - 12 hr Temp Pulse Resp BP Pulse Ox 12/29/18 21:00 68 14 98 12/29/18 20:02 85 15 122/77 95 12/29/18 20:00 81 15 98 12/29/18 19:45 86 20 139/79 98 12/29/18 19:02 82 16 114/70 99 12/29/18 19:00 80 15 98 12/29/18 18:32 80 13 103/61 97 12/29/18 18:04 81 97 12/29/18 17:44 93 12/29/18 17:00 82 9 96 12/29/18 16:47 82 20 90/66 95 12/29/18 16:33 81 97 12/29/18 16:32 85 86/54 97 12/29/18 16:18 96.7 F 87 20 74/51 97 Lactic Acid: 12/29/18 12/29/18 16:35 20:38 Lactic Acid 3.8 H* 1.8 - Cardiopulmonary Exam Capillary Refill: Immediate Respiratory: Symmetrical Chest Expansion and Respiratory Effort, Clear to Auscultation Cardiovascular: NL Sounds; No Murmurs; No JVD, RRR - Peripheral Pulse Exam Radial Pulses: Bilateral Normal - Skin Exam Skin Exam: Normal Turgor - Wolf Coma Scale Best Eye Response: 4 - Spontaneous Best Motor Response: 6 - Obeys Commands Best Verbal Response: 5 - Oriented Coma Scale Total: 15 Assess/Plan/Problems-Billing Assessment: 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 Will continue current management. BP and LA have responded to IVF. Continue to monitor in ICU.
[2018-12-29 21:09] LABS: Body Fluid Mono 50 %
[2018-12-29] MEDS ORDERED: Dextrose 50% VIAL 50 ml IV PUSH PRN (22:09)
[2018-12-29] MEDS: Lactated Ringers 1000 ML Bag* 1,000 ML IV SCH (22:25)
[2018-12-29] MEDS: Insulin LISPRO* 1 UNITS UNIT SUBCUT SCH (22:59)
[2018-12-29] MEDS: Heparin VIAL(*) 5000 UNITS/ML VIAL (FIVE THOUSAND) SUBCUT SCH (22:59)
[2018-12-29] MEDS: metroNIDAZOLE IV 500 MG/100ML* 500 MG/100 ML BAG IVPB SCH (23:01)
--- NOTE | 2018-12-30 00:45 | HP ---
CC: Dr. De La Torre; Dr. Betancourt * HISTORY AND PHYSICAL: DATE OF ADMISSION: 12/29/18 TIME OF EVALUATION: 8:30 p.m. PRIMARY CARE PROVIDER: Dr. De La Torre. UROLOGIST: Dr. Betancourt. CHIEF COMPLAINT: Diarrhea. 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 He states that a couple of weeks ago, he started to have diarrhea that he described as soft stool and this has progressed to the point that since yesterday he has had multiple episodes of watery diarrhea. He denies abdominal pain, nausea, and vomiting, but he states that he was not able to keep up with the fluid intake for that amount of diarrhea. He also noted that over the weekend, his glucose was elevated. He is usually on metformin and Victoza with reported reasonable glycemic control, but over the weekend, he saw numbers above 400. So, he added insulin Basaglar to 25 units twice a day with a Humalog coverage of 15 units 3 times a day. He also complains of increased urinary frequency. He states that he has had urinary frequency up to 4 or 5 times at night, but this was well controlled with dutasteride and tamsulosin, but over the weekend, he started to urinate a lot and he thought that was because his diabetes was uncontrolled, but even as his glucose trended down, he continued to urinate a lot. He denies abdominal pain, dysuria, fever, chills, or other complaints. On arrival to the emergency room, his initial blood pressure was 74/51 and the hospitalist service was contacted to evaluate the patient for admission. Initially, in the emergency room, he also complained of generalized weakness, photophobia, cold sweats, and also neck pain. The patient states that he has been under very intense stress as he is having increased demands of productivity in his office and he is also preparing to take the boards in the next month. The patient denies sick contacts. He denies eating any different foods. His did not have any symptoms. He denies any recent trips. PAST MEDICAL HISTORY: 1. Morbid obesity with a BMI of 41.6. 2. Type 2 diabetes. 3. Hypertension. 4. Hyperlipidemia. 5. Gout. 6. Obstructive sleep apnea, not on any treatment. PAST SURGICAL HISTORY: 1. Status post appendectomy. 2. Status post left cystocele repair. 3. Status post removal of skin cancers. FAMILY HISTORY: His father had multiple cancers including a non-Hodgkin's lymphoma, melanoma, and colon cancer. Mother had tuberculosis. Siblings had history of diabetes. SOCIAL HISTORY: The patient was a smoker from age 25 until age 40 a pack per day. He states that he drinks 4 times a week, usually 2 to 4 ounces of whiskey or wine. He denies any drug use. He is a physician, a primary care provider in the community. Surrogate decision maker is his , Kait Abernathy, phone number is [phone]. REVIEW OF SYSTEMS: A 14-point review of systems was performed, and all the pertinent negatives and positive findings are in the HPI. PHYSICAL EXAMINATION GENERAL: The patient is a pleasant, morbidly obese, gentleman lying in the ED stretcher in no acute distress. VITAL SIGNS: Temperature 98.0, heart rate is 87, respiratory rate is 20, oxygen saturation is 98% on room air, blood pressure is 122/77. HEENT: Pupils are equal. Dry mucous membranes. CHEST: Breath sounds are bilaterally diminished in the bases, but no added sounds. CVS: Normal S1, S2. Regular rate and rhythm. ABDOMEN: Morbidly obese, nontender, nondistended. Bowel sounds are present and increased. EXTREMITIES: No edema. Good capillary refill. Good pulses. NEURO: He is alert, oriented x3. Able to move all 4 extremities. DIAGNOSTIC STUDIES/LAB DATA: The patient had a CBC that showed WBC 11.2, hemoglobin 14.9, hematocrit 43, platelets of 253 with 77% neutrophils. INR is 0.92. Chemistry showed a sodium of 135, potassium of 3.9, chloride of 94, bicarb of 29, anion gap of 12, BUN of 34, creatinine of 2.41, glucose of 131, lactic acid is 3.8, calcium is 10.5. LFTs are normal. Troponin was 0.01. Urinalysis showed 1+ protein, 1+ blood, 2+ LE, 3+ wbc's, 2+ rbc's with squamous epithelial cells and transition epithelial cells present, 1+ bacteria, and 3+ glucose. CSF was colorless with clear appearance, 2 wbc's, 1 rbc with 50% lymphocytes, 50 % monocytes with a glucose of 110 and total protein of 41. Chest x-ray showed no evidence for active cardiopulmonary disease. CT of the brain showed stable age-related diffuse cerebral volume loss and chronic microvascular ischemic disease. No acute intracranial pathology. No signs of mass effect or herniation. CT of the cervical spine shows multilevel degenerative disk disease of the uncinate process and facet DJD, but no acute CT pathology. EKG done on 12/29/18 at 16:43 shows sinus rhythm at 76 beats per minute with no acute ischemic changes. No significant changes when compared to his prior EKG from May 2017. 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 1. Severe sepsis. The patient was not tachycardic initially because he is on the beta coreen as outpatient, but he was hypotensive with an initial blood pressure of 74/51 and had an initial lactic acid of 3.8 with acute kidney injury. I believe the patient is immunosuppressed in the setting of his diabetes mellitus and his presentation is compatible with severe sepsis and the source is likely accumulation of urinary tract infection and gastroenteritis. The patient received his fluid bolus in the emergency room and his blood pressure has improved. He will be admitted to the intensive care unit where we will continue to monitor. There was concern for possible meningitis as the patient is complaining of malaise, headache, and photophobia, but his cerebrospinal fluid shows normal protein with only 2 wbc's. So, I will discontinue the acyclovir and vancomycin at this point. 2. Gastroenteritis. Stool workup is requested as well as Clostridium difficile. 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 So , even if he is not aware, he might have had exposure to other sick individuals. He will be started on ceftriaxone and Flagyl empirically. I believe he probably developed the gastroenteritis first and later on progressed with a urinary tract infection. 3. Urinary tract infection. The patient describing his urinary frequency overnight likely associated with his benign prostatic hyperplasia, but this has become worse over the weekend probably in the setting of uncontrolled diabetes and urinary tract infection. We will continue ceftriaxone and follow his urine culture. Renal, bladder ultrasound will be requested looking for hydronephrosis or nephrolithiasis. If good images are not obtained due to body habitus, I believe a CT of the abdomen would be helpful both for the urinary tract infection as well as the gastroenteritis. 4. Type 2 diabetes, uncontrolled. The patient states that in the past he had reasonable control with metformin and Victoza, but he is having issues now that the Victoza is not going to be covered by his insurance. Over the weekend, he started on a regimen of Basaglar and Humalog and his initial glucose in the emergency room was 131. We are going to monitor his fingersticks a.c. and h.s. He is going to have lower dose of Lantus of 20 units daily for now with the lispro sliding scale. His metformin will be held in the setting of lactic acidosis and we are going to check the hemoglobin A1c. 5. Acute kidney injury. The patient's creatinine is elevated at 2.41 from a baseline of 1.1. I believe most of it is prerenal in the setting of diarrhea, polyuria, and not be able to keep up with his loses. On top of that, the patient is also on lisinopril and hydrochlorothiazide as an outpatient. The patient will continue to receive aggressive fluid resuscitation and we will monitor his renal functioning and urine output. Of note, the patient declined Brooke catheter placement in the emergency room, so we will monitor his intake and output in the ICU. 6. Benign prostatic hyperplasia. We will continue tamsulosin and dutasteride as tolerated. 7. DVT prophylaxis. The patient has a score of 4 on the DVT Prophylaxis Risk Assessment Guide. He will be started on subcutaneous heparin. 8. Code status is discussed with the patient and his . The patient wishes to be a full code. The patient will benefit having a primary care provider appointment done and further counseling regarding his stress levels and need for weight loss and compliance. TIME SPENT: Approximately 60 minutes was spent with patient and interview , medical records review, physical examination to complete the admission; more than half this time was spent [id number] with the patient and coordination of care. [id number]/[facility] #: [id number] TOM
[2018-12-30] MEDS: cefTRIAXone(*) 2 GM in NS 0.9% 100 ML* 100 ML IVPB SCH ×2 (04:40→16:36)
[2018-12-30] MEDS: Lactated Ringers 1000 ML Bag* 1,000 ML IV SCH (04:43)
[2018-12-30 04:44] LABS: ABS Basophils 0.1 10^3/ul (0-0.2); ABS Eosinophils 0.2 10^3/ul (0-0.6); ABS Lymphocytes 1.5 10^3/ul (1.0-4.8); ABS Monocytes 0.7 10^3/ul (0-0.8); ABS Neutrophils 4.9 10^3/ul (1.5-7.7); Eosinophil % 2.5 %; Hematocrit 35 % (42-52); Hemoglobin 12.4 g/dL (14.0-18.0); Lymphocyte % 20.7 %; Mean Corpuscular HGB Conc 35 g/dL (31-36); Mean Corpuscular Hemoglobin 31 pg (27-31); Mean Corpuscular Volume 89 fL (80-94); Mean Platelet Volume 9.9 fL (7.4-10.4); Nucleated Red Blood Cells % 0.1; Platelet Count 172 10^3/uL (150-450); Red Blood Count 3.96 10^6 /uL (4.18-5.48); Red Cell Distribution Width 14 % (10-15); White Blood Count 7.5 10^3/uL (3.5-10.8)
[2018-12-30 05:12] LABS: Albumin 3.1 g/dL (3.2-5.2); Albumin/Globulin Ratio 1.6 (1-3); BUN/Creatinine Ratio 14.8 (8-20); Calcium 8.2 mg/dL (8.6-10.3); EGFR African American 33.2 (>60); EGFR Non-African American 27.5 (>60); Globulin 1.9 g/dL (2-4); Potassium 3.4 mmol/L (3.5-5.0); Total Bilirubin 0.3 mg/dL (0.2-1.0)
[2018-12-30] MEDS: Heparin VIAL(*) 5000 UNITS/ML VIAL (FIVE THOUSAND) SUBCUT SCH ×3 (06:07→21:20)
[2018-12-30] MEDS: metroNIDAZOLE IV 500 MG/100ML* 500 MG/100 ML BAG IVPB SCH (06:07)
[2018-12-30] MEDS ORDERED: Potassium Chlor TAB* 20 MEQ TAB.ER PO ONE (07:50)
[2018-12-30] MEDS: Atorvastatin* 40 MG TAB PO SCH (08:32)
[2018-12-30] MEDS: Insulin GLARGINE(*) 1 UNITS UNIT SUBCUT SCH (08:32)
[2018-12-30] MEDS: Finasteride TAB* 5 MG PO SCH (08:32)
[2018-12-30] MEDS: Insulin LISPRO* 1 UNITS UNIT SUBCUT SCH ×8 (08:43→21:17)
[2018-12-30] MEDS ORDERED: Lactated Ringers 1000 ML Bag* 1,000 ML IV SCH (09:17)
--- NOTE | 2018-12-30 12:05 | CONSULT ---
Consult Consult: Consult requested for GERI Baseline sCr 1.1 from June Peak sCr 2.4 yesterday 2.37 today Admitted with uncontrolled hyperglycemia, polyuria, diarrhea for a few days - worse yesterday. In ED, systolic blood pressure dropped to mid 60s s/p resuscitation with IV fluids 4-5 L. Today BP is better. 130s off BP Meds on IVF Of note, he was on metformin, HCTZ and lisinopril at home. All on hold. Feels better no edema no chest pain On IV ABx s/p LP in ED -ve Volume status: No edema. Off HCTZ. DeniedNSAIDs. Denied recent IVC. Past Medical History: CKD as above sCr 1.1-1.3. eGFR 60 HTN DM Type II on Metformin & Victoza Dyslipidemia Obesit Allergies, Social History,Family History &Surgical History:Reviewed 12-Point Review of Systemobtained: Negative exceptpertinent positives: Constitutional no fever no weight loss Eyes No blurry vision CV no shortness of breath no chest pain no syncope no edema Resp No shortness of breath no cough no wheezing G.I. no diarrhea no nausea no vomiting no pain no blood per rectum no burning no obstruction symptoms Skin no rash Neurology No seizures or neurologic deficit Endocrine no diabetes Hem/Lymp no bleeding no lymph nodes Immun/Allergy no allergic actions Musculoskeletal no Arthritis no swelling no pain Psych no anxiety no depression no hallucination Inpatient Meds: Atorvastatin Dextrose Finasteride Heparin Ceftriaxone Lactated Ringer's 75/Hr Insulin Glargine Insulin Human Lispro Tamsulosin Home Medications Medication Instructions Recorded Confirmed Type Atenolol TAB* [Tenormin TAB* 50 MG] 50 mg PO DAILY 01/12/14 12/29/18 History metFORMIN* [Glucophage 1000 MG TAB 1,000 mg PO BID 01/12/14 12/29/18 History Allopurinol TAB* [Zyloprim 300 MG 300 mg PO DAILY 12/29/18 12/29/18 History Dutasteride (NF) [Avodart (NF)] 0.5 mg PO DAILY 12/29/18 12/29/18 History Insulin Glargine,Hum.rec.anlog 20 unit SUBCUT BID 12/29/18 12/29/18 History [Buddyaglpradip Quiroz] Insulin Regular 500 Unit/ml 0 unit SUBCUT QID MDD 145 units 12/29/18 12/29/18 History [Humulin R U-500 (Concentrated)] Liraglutide (NF) [Victoza (NF)] 1.8 mg SUBCUT DAILY 12/29/18 12/29/18 History Lisinopril/HCTZ (NF) 1 tab PO DAILY 12/29/18 12/29/18 History [Zestoretic (NF)] Rosuvastatin (NF) [Crestor] 20 mg PO DAILY 12/29/18 12/29/18 History Tamsulosin CAP* [Flomax CAP*] 0.4 mg PO BEDTIME 12/29/18 12/29/18 History Vital Signs Temp 97.5 F 12/30/18 10:34 Pulse 74 12/30/18 10:34 Resp 16 12/30/18 10:34 BP 134/70 12/30/18 10:34 Pulse Ox 99 12/30/18 10:34 Intake & Output 12/29/18 12/30/18 12/30/18 18:59 06:59 18:59 Intake Total 100 5658 700 Output Total 625 225 Balance 100 5033 475 Weight 139.253 kg 139.5 kg Intake: IV Fluids 100 5387 595 LR 1137 539 normal saline 4000 56 IVPB 271 105 antibiotics 271 105 Output: Urine 625 225 10 Pointmulti systemexam: Negative except pertinent positive Vital Signs: Constitutional Alert Oriented x 3 Abdomen SoftAbdomen No Ascites Heart: NSR,No LE Edema, No murmur Lungs: Clear to auscultation, No Crackles Extremities: No edema, rash Laboratory Reviewed Lactic Acid 3.8--->0.8 WBC 7.5 10^3/uL (3.5-10.8) 12/30/18 04:30 RBC 3.96 10^6 /uL (4.18-5.48) L 12/30/18 04:30 Hgb 12.4 g/dL (14.0-18.0) L 12/30/18 04:30 Hct 35 % (42-52) L 12/30/18 04:30 MCV 89 fL (80-94) 12/30/18 04:30 MCH 31 pg (27-31) 12/30/18 04:30 MCHC 35 g/dL (31-36) 12/30/18 04:30 RDW 14 % (10-15) 12/30/18 04:30 Plt Count 172 10^3/uL (150-450) Sodium 132 mmol/L (135-145) L 12/30/18 04:30 Potassium 3.4 mmol/L (3.5-5.0) L 12/30/18 04:30 Chloride 102 mmol/L (101-111) 12/30/18 04:30 Carbon Dioxide 24 mmol/L (22-32) 12/30/18 04:30 Anion Gap 6 mmol/L (2-11) 12/30/18 04:30 BUN 35 mg/dL (6-24) H 12/30/18 04:30 Creatinine 2.37 mg/dL (0.67-1.17) H 12/30/18 04:30 Est GFR ( Amer) 33.2 (>60) 12/30/18 04:30 Est GFR (Non-Af Amer) 27.5 (>60) 12/30/18 04:30 BUN/Creatinine Ratio 14.8 (8-20) 12/30/18 04:30 Glucose 217 mg/dL (70-100) H 12/30/18 04:30 POC Glucose (mg/dL) 246 mg/dL (70-100) H 12/30/18 11:26 Lactic Acid 0.8 mmol/L (0.5-2.0) 12/30/18 04:30 Calcium 8.2 mg/dL (8.6-10.3) L 12/30/18 04:30 Total Bilirubin 0.30 mg/dL (0.2-1.0) 12/30/18 04:30 AST 21 U/L (13-39) 12/30/18 04:30 ALT 22 U/L (7-52) 12/30/18 04:30 Alkaline Phosphatase 95 U/L (34-104) 12/30/18 04:30 Troponin I 0.01 ng/mL (<0.04) 12/29/18 16:35 C-React Prot High Sens 3.52 mg/L (<2.00) H 12/29/18 17:01 Total Protein 5.0 g/dL (6.4-8.9) L 12/30/18 04:30 Albumin 3.1 g/dL (3.2-5.2) L 12/30/18 04:30 Globulin 1.9 g/dL (2-4) L 12/30/18 04:30 Albumin/Globulin Ratio 1.6 (1-3) 12/30/18 04:30 Urine Color Yellow 12/29/18 19:45 Urine Appearance Cloudy 12/29/18 19:45 Urine pH 5.0 (5-9) 12/29/18 19:45 Ur Specific [place] 1.010 (1.010-1.030) 12/29/18 19:45 Urine Protein 1+(30 mg/dl) (Negative) A 12/29/18 19:45 Urine Ketones Negative (Negative) 12/29/18 19:45 Urine Blood 1+ (Negative) A 12/29/18 19:45 Urine Nitrate Negative (Negative) 12/29/18 19:45 Urine Bilirubin Negative (Negative) 12/29/18 19:45 Urine Urobilinogen Negative (Negative) 12/29/18 19:45 Ur Leukocyte Esterase 2+ (Negative) A 12/29/18 19:45 Urine WBC (Auto) 3+(>20/hpf) (Absent) A 12/29/18 19:45 Urine RBC (Auto) 2+(6-10/hpf) (Absent) A 12/29/18 19:45 Ur Squamous Epith Cells Present (Absent) A 12/29/18 19:45 Ur Transition Epith Cell Present (Absent) A 12/29/18 19:45 Urine Bacteria 1+ (Absent) A 12/29/18 19:45 Urine Glucose 3+(>=500 mg/dl) (Negative) A 12/29/18 19:45 Fluid Source Cerebral spinal 12/29/18 20:20 Fluid Volume 1.5 mL 12/29/18 20:20 Fluid Color Colorless 12/29/18 20:20 Fluid Appearance Clear 12/29/18 20:20 Fluid WBC 2 /mcL 12/29/18 20:20 Fluid RBC 1 /mcL 12/29/18 20:20 Fluid Tot Cell Count 4 12/29/18 20:20 Fluid Neutrophils Not Reportable 12/29/18 20:20 Fluid Lymphocytes 50 % 12/29/18 20:20 Fluid Monocytes 50 % 12/29/18 20:20 Fluid Comment 12/29/18 20:20 CSF Cell Count Tube # 4 12/29/18 20:20 CSF Glucose 110 mg/dL (40-70) H 12/29/18 20:20 CSF Total Protein 41 mg/dL (15-45) 12/29/18 20:20 Assessment and Plan: *GERI on CKD likely 2/2 Pre-Renal from volume depletion: Hyperglycemia, polyuria , diarrhea while on ACEI/HCTZ: Agree with IVF & holding off BP meds. If sCr doesn't improves significantly by tomorrow, this could be ATN 2/2 sepsis or low blood pressure. Of note, no postvoid residual r/o obstructive uropathy Upon discharge he's not a good candidate for HCTZ as he's at risk for recurrent AKIs & OR and progressive CKD. *BP Better. do not resume ACEI for another 24-48 hours & advise stopping HCTZ upon discharge *Volume status: No edema, may cut down or stop IVF. *Electrolytes: Ok * Ok
--- NOTE | 2018-12-30 12:12 | PN ---
Subjective Date of Service: 12/30/18 Interval History: Pt feels well and inquires about discharge. Diarrhea resolved-no BM x 24H, denies abd pain, no N/V Neck pain resolved Objective Active Medications: Atorvastatin Calcium (Lipitor*) 40 mg PO DAILY [facility] Last Admin: 12/30/18 08:32 Dose: 40 mg Dextrose (Dextrose 50% Vial 50 Ml*) 25 ml IV PUSH .FOR FS < 60 - SS PRN PRN Reason: FS < 60 Finasteride (Proscar Tab*) 5 mg PO DAILY [facility]; Protocol Last Admin: 12/30/18 08:32 Dose: Not Given Heparin Sodium (Porcine) (Heparin Vial(*)) 5,000 units SUBCUT Q8HR [facility] Last Admin: 12/30/18 06:07 Dose: 5,000 units Ceftriaxone Sodium 2 gm/ (Sodium Chloride) 100 mls @ 200 mls/hr IVPB Q12H [facility] Last Admin: 12/30/18 04:40 Dose: 200 mls/hr Lactated Ringer's (Lactated Ringers 1000 Ml Bag*) 1,000 mls @ 75 mls/hr IV PER RATE [facility] Insulin Glargine (Lantus(*)) 20 units SUBCUT Q24H [facility] Last Admin: 12/30/18 08:32 Dose: 20 units Insulin Human Lispro (Humalog*) 0 units SUBCUT ACHS [facility]; Protocol Last Admin: 12/30/18 09:22 Dose: 6 units Insulin Human Lispro (Humalog*) 0 units SUBCUT AC [facility]; Protocol Last Admin: 12/30/18 09:28 Dose: 2 units Tamsulosin HCl (Flomax Cap*) 0.4 mg PO BEDTIME [facility] Vital Signs - 8 hr 12/30/18 12/30/18 12/30/18 04:30 05:00 05:30 Temperature Pulse Rate 78 68 75 Respiratory 12 10 12 Rate Blood Pressure 139/88 135/80 142/68 (mmHg) O2 Sat by Pulse 97 98 95 Oximetry 12/30/18 12/30/18 12/30/18 06:00 06:30 07:00 Temperature Pulse Rate 73 84 72 Respiratory 10 18 12 Rate Blood Pressure 117/69 132/74 134/68 (mmHg) O2 Sat by Pulse 97 98 97 Oximetry 12/30/18 12/30/18 12/30/18 07:02 07:30 08:00 Temperature 98.3 F Pulse Rate 67 86 84 Respiratory 14 12 19 Rate Blood Pressure 121/69 119/58 (mmHg) O2 Sat by Pulse 95 97 97 Oximetry 12/30/18 12/30/18 12/30/18 08:01 08:30 09:00 Temperature Pulse Rate 83 75 82 Respiratory 19 19 20 Rate Blood Pressure 142/63 (mmHg) O2 Sat by Pulse 96 98 96 Oximetry 12/30/18 12/30/18 12/30/18 09:01 09:30 10:00 Temperature Pulse Rate 80 82 82 Respiratory 23 18 21 Rate Blood Pressure 123/68 143/85 144/71 (mmHg) O2 Sat by Pulse 96 98 97 Oximetry 12/30/18 10:34 Temperature 97.5 F Pulse Rate 74 Respiratory 16 Rate Blood Pressure 134/70 (mmHg) O2 Sat by Pulse 99 Oximetry Oxygen Devices in Use Now: None Appearance: 68 yo m in nAD, aAOx3 Eyes: No Scleral Icterus, PERRLA Ears/Nose/Mouth/Throat: NL Teeth, Lips, Gums, Mucous Membranes Moist Neck: NL Appearance and Movements; NL JVP, Trachea Midline Respiratory: Symmetrical Chest Expansion and Respiratory Effort, Clear to Auscultation Cardiovascular: NL Sounds; No Murmurs; No JVD, RRR Abdominal: NL Sounds; No Tenderness; No Distention Lymphatic: No Cervical Adenopathy Extremities: No Clubbing, Cyanosis, - - trace pedal edema b/l Skin: No Rash or Ulcers, No Nodules or Sclerosis Neurological: Alert and Oriented x 3, NL Muscle Strength and Tone Result Diagrams: 12/30/18 04:30 12/30/18 04:30 Microbiology and Other Data: Microbiology 12/29/18 20:20 CSF Gram Stain (Tube 3) - Final Cerebral Spinal Fluid 12/29/18 22:15 Nasal Screen MRSA (PCR) - Final Nasal Mrsa Not Detected Assess/Plan/Problems-Billing Assessment: 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 - Patient Problems (1) Severe sepsis Comment: pt's hypoetnsion resolved after IVF No more diarrhea, suspect the cause of sepsis is gastroneteritis(poss viral) with possible UTI Cont Ceftriaxone, d/c Flagyl cont with stool cx, d/c C. diff testing since no BM x24H Transfer out of ICU (2) DM2 (diabetes mellitus, type 2) Comment: due to elevated creatinine metformin will not be restarted cont ISS and Lantus (3) GERI (acute kidney injury) Comment: Creat just with mild improvement after over 4L of IVF suspect ATN. FeNa pending Asked nephrology to see pt cont Ceftriaxone for poss UTI(blood cx and U cx pending) No siginifcant post void residual noted on renal and bladder US. will cont gentle IVF (4) DVT prophylaxis Comment: HSQ Status and Disposition: Inpatient, anticipated d/c home tomorrow
[2018-12-30 16:08] LABS: Urine Creatinine Concentration 120.58 mg/dL
[2018-12-30] MEDS ORDERED: Tamsulosin CAP* 0.4 MG PO SCH (21:00)
[2018-12-31] MEDS: cefTRIAXone(*) 2 GM in NS 0.9% 100 ML* 100 ML IVPB SCH (04:35)
[2018-12-31] MEDS: Heparin VIAL(*) 5000 UNITS/ML VIAL (FIVE THOUSAND) SUBCUT SCH (04:55)
[2018-12-31 05:13] LABS: Hematocrit 38 % (42-52); Hemoglobin 12.9 g/dL (14.0-18.0); Mean Corpuscular HGB Conc 34 g/dL (31-36); Mean Corpuscular Hemoglobin 31 pg (27-31); Mean Corpuscular Volume 90 fL (80-94); Mean Platelet Volume 10.1 fL (7.4-10.4); Platelet Count 187 10^3/uL (150-450); Red Blood Count 4.18 10^6 /uL (4.18-5.48); Red Cell Distribution Width 15 % (10-15); White Blood Count 6.9 10^3/uL (3.5-10.8)
[2018-12-31 05:35] LABS: BUN/Creatinine Ratio 15.8 (8-20); Calcium 8.8 mg/dL (8.6-10.3); EGFR African American 55.5 (>60); EGFR Non-African American 45.8 (>60); Magnesium 1.5 mg/dL (1.9-2.7); Potassium 3.6 mmol/L (3.5-5.0)
[2018-12-31 07:40] VITALS: BP 130/76
[2018-12-31] MEDS ORDERED: Magnesium Sulfate 2 GM IV* 2 GM/50 ML BAG IVPB ONE (08:50)
[2018-12-31] MEDS ORDERED: Magnesium Oxide TAB* 400 MG PO SCH (09:00)
--- NOTE | 2018-12-31 09:03 | PN ---
Progress Note - Progress Note Date of Service: 12/31/18 Note: Renal follow-up Baseline sCr 1.1 GERI sCr 2.4-2.37 GERI 2/2 uncontrolled hyperglycemia, diarrhea, Hypotension improved with IV fluids. sCr today 1.52. Feels well no complaints wants to go home. c/c of lack sleep from his hospital stay. No shortness of breath no edema Metformin, HCTZ and Lisinopril still on hold. Inpatient Meds: Atorvastatin Calcium (Lipitor*) 40 mg PO DAILY [facility] Last Admin: 12/30/18 08:32 Dose: 40 mg Dextrose (Dextrose 50% Vial 50 Ml*) 25 ml IV PUSH .FOR FS < 60 - SS PRN PRN Reason: FS < 60 Finasteride (Proscar Tab*) 5 mg PO DAILY [facility]; Protocol Last Admin: 12/30/18 08:32 Dose: Not Given Heparin Sodium (Porcine) (Heparin Vial(*)) 5,000 units SUBCUT Q8HR [facility] Last Admin: 12/31/18 04:55 Dose: Not Given Ceftriaxone Sodium 2 gm/ (Sodium Chloride) 100 mls @ 200 mls/hr IVPB Q12H [facility] Last Admin: 12/31/18 04:35 Dose: 200 mls/hr Magnesium Sulfate (Magnesium Sulfate 2 Gm Iv*) 2 gm in 50 mls @ 50 mls/hr IVPB ONCE ONE Stop: 12/31/18 09:49 Insulin Glargine (Lantus(*)) 20 units SUBCUT Q24H [facility] Last Admin: 12/30/18 08:32 Dose: 20 units Insulin Human Lispro (Humalog*) 0 units SUBCUT ACHS [facility]; Protocol Last Admin: 12/30/18 21:17 Dose: 6 units Insulin Human Lispro (Humalog*) 0 units SUBCUT AC [facility]; Protocol Last Admin: 12/30/18 17:57 Dose: 1 units Magnesium Oxide (Magox 400 Tab*) 800 mg PO DAILY [facility] Tamsulosin HCl (Flomax Cap*) 0.4 mg PO BEDTIME [facility] Last Admin: 12/30/18 21:17 Dose: 0.4 mg Last Vital Signs 12/30/18 12/31/18 12/31/18 23:15 03:15 07:15 Temperature 97.6 F 98.1 F 97.4 F Pulse Rate 66 60 75 Respiratory 20 20 17 Rate Blood Pressure 124/64 154/84 130/76 (mmHg) O2 Sat by Pulse 94 100 96 Oximetry Laboratory Results 12/30/18 12/30/18 12/31/18 16:34 20:31 04:22 WBC 6.9 RBC 4.18 Hgb 12.9 L Hct 38 L MCV 90 MCH 31 MCHC 34 RDW 15 Plt Count 187 MPV 10.1 Sodium Potassium Chloride Carbon Dioxide Anion Gap BUN Creatinine Est GFR ( Amer) Est GFR (Non-Af Amer) BUN/Creatinine Ratio Glucose POC Glucose (mg/dL) 228 H 208 H Hemoglobin A1c Calcium Magnesium Ur Creatinine Concen U Sodium Concentration Fluid Cell Count Rvw By Lyme Total Antibody 12/31/18 12/31/18 04:22 07:07 WBC RBC Hgb Hct MCV MCH MCHC RDW Plt Count MPV Sodium 139 Potassium 3.6 Chloride 104 Carbon Dioxide 28 Anion Gap 7 BUN 24 Creatinine 1.52 H Est GFR ( Amer) 55.5 Est GFR (Non-Af Amer) 45.8 BUN/Creatinine Ratio 15.8 Glucose 204 H POC Glucose (mg/dL) 199 H Hemoglobin A1c Calcium 8.8 Magnesium 1.5 L Ur Creatinine Concen U Sodium Concentration Fluid Cell Count Rvw By Lyme Total Antibody Assessment and plan: *GERI on CKD likely 2/2 Pre-Renal improved with IVF & holding off BP meds. ATN unlikely as sCr corrected rapidly. s/p GERI, he's not a good candidate for HCTZ. He 's aware he's at risk for recurrent AKIs and progressive CKD. *BP Good, may resume ACEI for another 24-48 hours after discharge *Volume status: No edema, off IVF. *Electrolytes: Ok. F/U Mg outpatient * Ok. He'll benefit from Outpatient Renal F/U
[2018-12-31] MEDS: Atorvastatin* 40 MG TAB PO SCH (09:45)
[2018-12-31] MEDS: Finasteride TAB* 5 MG PO SCH (09:45)
[2018-12-31] MEDS: Insulin GLARGINE(*) 1 UNITS UNIT SUBCUT SCH (09:45)
[2018-12-31] MEDS: Insulin LISPRO* 1 UNITS UNIT SUBCUT SCH ×2 (09:46)
--- NOTE | 2018-12-31 14:28 | DS ---
CC: Dr. Dillan Ariza; Dr. Bustos; Dr. De La Torre; Dr. Betancourt * DISCHARGE SUMMARY: DATE OF ADMISSION: 12/29/18 DATE OF DISCHARGE: 12/31/18 PRIMARY CARE PROVIDER: Dr. Dillan Ariza. DISPOSITION AT DISCHARGE: Home. CONDITION AT DISCHARGE: Stable. DISCHARGE DIAGNOSES: 1. Severe sepsis due to gastroenteritis. 2. One out of four bottles of blood cultures positive, likely contamination. 3. Acute kidney injury due to dehydration. SECONDARY DIAGNOSES: 1. History of diabetes type 2. 2. History of hypertension. 3. Hyperlipidemia. 4. Gout. 5. Obstructive sleep apnea, not on treatment. MEDICATIONS AT DISCHARGE: Include: 1. Allopurinol 300 mg daily. 2. Atenolol 50 mg daily. 3. Avodart 0.5 mg daily. 4. Victoza 1.8 mg subcutaneously daily. 5. Crestor 20 mg daily. 6. Insulin glargine 20 units daily. 7. Magnesium oxide 800 mg daily. 8. Terazosin 10 mg at bedtime. DISCHARGE INSTRUCTIONS: At discharge, the patient is recommended to have a basic metabolic panel drawn in approximately a week and to be sent to his primary care provider. For a followup appointment, the patient is going to see Dr. Betancourt within the next couple of days. The patient is recommended to follow up with his primary care provider, Dr. Ariza, in approximately a week. LABORATORY DATA AND STUDIES: Performed during the hospital stay include: On , white blood cell count of 6.9, hemoglobin 12.9, hematocrit 38, and platelets 187. Sodium 139, potassium 3.6, chloride 104, carbon dioxide 28, BUN 24, creatinine 1.52. Liver function tests on admission were grossly unremarkable with AST of 21, ALT of 22, alkaline phosphatase of 95. C-reactive protein at admission was 3.5. The patent's creatinine on admission was 2.4. Calculated fractional excretion of sodium at admission was 0.6 with likely cause of the patient's renal injury was prerenal. Serum Lyme antibody was negative. Lumbar puncture results showed clear fluid with 2 white blood cells, 1 red blood cell, 110 of glucose, and 41 of protein. Microbiology test: Cerebrospinal fluid no growth for 2 days. Nasal screen, MRSA not detected. Urine cultures, no growth. Blood cultures, positive for 1/ 4 bottles and gram-positive cocci was the main stuff, it was MRSA negative and Staph aureus negative. CONSULTATION DURING THE HOSPITAL STAY: Included Dr. Bustos from Nephrology. 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 There was no significant history of abdominal pain. He presented to the ED with blood pressure in the 70s. He had acute kidney injury with creatinine of 2.4. He initially was admitted to the intensive care unit, treated with intravenous fluid boluses. His urinalysis initially indicated likelihood of UTI and antibiotics were started, including ceftriaxone as well as Flagyl for possibility of a GI infection. After admission, the patient had no further loose bowel movements and no abdominal pain. Therefore, stool C. diff or stool cultures were not obtained. The patient's blood cultures were positive 1 out of 4 bottles likely due to contamination, but the official report is going to be back tonight. Further microbiology studies failed to show any infection. At this point, it was noted that likely gastroenteritis that was possibly viral was the cause of the patient's dehydration, hypotension, acute kidney injury. Please note that the patient's hemoglobin A1c was 13.6 indicating not the greatest control of his diabetes. The patient recently was started on insulin. At this point, the patient's sugars had been in the 200 range on 20 units of Lantus without his Victoza on board. He is going to be restarting Victoza at discharge, continuing Lantus at 20 units and titrating it as needed. Metformin is going to be held for the time being as well as CINTHIA inhibitor and hydrochlorothiazide. As per nephrology advice, the patient is not a candidate for further use of hydrochlorothiazide, but CINTHIA inhibitor can be restarted at low dose within a couple of days after discharge. At this point, the patient does not have a primary care provider, but he is planning to follow up with Dr. Dillan Ariza. The patient is also going to follow up with Dr. Betancourt in the nearest future in regards to his BPH. PHYSICAL EXAMINATION AT THE TIME OF DISCHARGE: Blood pressure of 130/76, heart rate of 75 and regular, respiratory rate 17, oxygen saturation 96% on room air, temperature 97.4. General: The patient is a very pleasant 68-year-old male, who is in no acute distress. Alert, awake, and oriented x3. HEENT: Head atraumatic, normocephalic. Eyes: Pupils are equal and reactive to light and accommodation. Oropharynx is clear. Mucosa moist. Neck: Supple. No JVD. No bruits bilaterally. Cardiovascular: Regular rate and rhythm. No murmurs. Respiratory: Clear to auscultation bilaterally. Abdomen: Soft, nontender. Bowel sounds are present in all 4 quadrants. Extremities: There is minimal to trace bilateral ankle edema. Pulses are +2 bilaterally. There is no clubbing or cyanosis. On neuro evaluation, cranial nerves II through XII grossly intact. Motor strength is 5/5 bilaterally. Please note that this is a short summary of patient's hospital stay. Please refer to further medical records for details. TIME SPENT: Approximately 35 minutes was spent on the patient's discharge. [id number]/CPS #: [id number] MTDD
== END 2018-12-31 11:25 | disposition home or self-care (01) | DRG 872 ==
LOC: ED 16:17 → ICU 20:37 → MED 12-30 09:12
PROVIDERS: ADMIT Internal Medicine; ATTEND Internal Medicine
DX: A41.9 Sepsis, unspecified organism (principal); N17.9 Acute kidney failure, unspecified; Z68.41 Body mass index [BMI] 40.0-44.9, adult; I95.9 Hypotension, unspecified; A08.4 Viral intestinal infection, unspecified; R65.20 Severe sepsis without septic shock; E86.0 Dehydration; E78.5 Hyperlipidemia, unspecified; M10.9 Gout, unspecified; G47.33 Obstructive sleep apnea (adult) (pediatric); E11.65 Type 2 diabetes mellitus with hyperglycemia; M50.30 Other cervical disc degeneration, unspecified cervical region; N40.0 Benign prostatic hyperplasia without lower urinary tract symptoms; E66.01 Morbid (severe) obesity due to excess calories; Z79.84 Long term (current) use of oral hypoglycemic drugs; Z80.7 Family history of other malignant neoplasms of lymphoid, hematopoietic and related tissues; Z80.0 Family history of malignant neoplasm of digestive organs; Z83.3 Family history of diabetes mellitus; Z84.89 Family history of other specified conditions; Z87.891 Personal history of nicotine dependence
CPT/HCPCS: 36415; 70450; 71045; 72125; 76770; 80048; 80053; 81003; 81015; 82570; 82945; 83036; 83605; 83735; 84157; 84300; 84484; 84681; 85025; 85027; 85610; 85730; 86141; 86618; 87040; 87070; 87077; 87086; 87150; 87205; 87641; 89051; 93005; 99285; A9270-GY; J0133; J0696; J1644; J3370; J3475